=== PATIENT | male | born 1990 | race African-American/Black ===

== ENCOUNTER 2022-04-13 18:46 | Emergency (ER) | payer SELFPAY ==
[2022-04-13] MEDS ORDERED: Acetaminophen 500 MG TAB ONE (19:30)
== END 2022-04-13 20:03 | disposition home or self-care (01) ==
LOC: CSHERS 18:46
DX: J10.1 Influenza due to other identified influenza virus with other respiratory manifestations (principal); F17.210 Nicotine dependence, cigarettes, uncomplicated
CPT/HCPCS: 87804; 99284

== ENCOUNTER 2023-01-25 13:26 | Emergency (ER) | payer BC, SELFPAY ==
[2023-01-25 14:19] LABS: SARS-CoV-2 NAA Rapid Test DETECTED (NotDetected)
== END 2023-01-25 16:10 | disposition home or self-care (01) ==
LOC: CSHERS 13:26
DX: U07.1 COVID-19 (principal); F17.210 Nicotine dependence, cigarettes, uncomplicated
CPT/HCPCS: 99283; U0002

== ENCOUNTER 2023-06-30 20:35 | Emergency (ER) | payer SELFPAY ==
[2023-06-30 21:29] LABS: SARS-CoV-2 NAA Rapid Test Not Detected (NotDetected)
== END 2023-06-30 22:25 | disposition home or self-care (01) ==
LOC: CSHERS 20:35
DX: J11.1 Influenza due to unidentified influenza virus with other respiratory manifestations (principal); F17.210 Nicotine dependence, cigarettes, uncomplicated
CPT/HCPCS: 99283